=== PATIENT | male | born 1955 | race Caucasian/White ===

== ENCOUNTER 2017-07-08 08:55 | Emergency (ER) | payer SELFPAY ==
[~2017-07-08] VITALS: Ht 182.9 cm; Wt 100.0 kg
[~2017-07-08 08:55] MED LIST: ALEV220T14 PO; AMLO10TA2 PO; ASPI325T PO; BETAM.05%T TOP; CARV3.12 PO; CARV3.125 PO; LISI-363 PO; MELO15TA2 PO; METHO500 PO; MOBI15TA PO
[2017-07-08 08:57] VITALS: BP 175/80; PULSE 75; RESP 16; TEMP 98.7; O2SAT 97
--- NOTE | 2017-07-08 09:09 | PD ---
HPI Chief Complaint: Hypertension Time Seen by Provider: 09:02 Travel History International Travel<30 days: No Contact w/Intl Traveler<30days: No Traveled to known affect area: No History of Present Illness HPI 61-year-old male presents the emergency department for his hypertension. Patient states she's been off his medications for over a year. He is concerned this is blood pressure was read as high "seek medical attention " at [facility] this morning. Patient did have some mild neck attention this morning which she states happens when his blood pressure is elevated. He is to take lisinopril 20 mg as well as amlodipine 10 mg, as well as carvedilol 3.25 mg twice a day. He currently has no primary care physician. He was [facility] previously. He has no known drug allergies. [facility] Past Medical History Diminished Hearing: No Hypertension: Yes Social History Alcohol Use: No Tobacco Use: No Substance Use: No Allergies-Medications (Allergen,Severity, Reaction): Coded Allergies: No Known Allergies (Unverified , 07/08/17) Reported Meds & Prescriptions Reported Meds & Active Scripts Active Amlodipine (Amlodipine Besylate) 10 Mg Tab 10 Mg PO DAILY Coreg (Carvedilol) 3.125 Mg Tab 3.125 Mg PO BID Review of Systems General / Constitutional: No: Fever Eyes: No: Visual changes HENT: No: Headaches Cardiovascular: No: Chest Pain or Discomfort Respiratory: No: Shortness of Breath Gastrointestinal: No: Abdominal Pain Genitourinary: No: Dysuria Musculoskeletal: No: Pain Skin: No Rash Neurologic: No: Weakness Psychiatric: No: Depression Endocrine: No: Polydipsia Hematologic/Lymphatic: No: Easy Bruising Physical Exam Narrative GENERAL: Patient appears no acute distress. SKIN: Warm and dry. HEAD: Atraumatic. Normocephalic. EYES: Pupils equal and round. No scleral icterus. No injection or drainage. ENT: No nasal bleeding or discharge. Mucous membranes pink and moist. NECK: Trachea midline. No JVD. CARDIOVASCULAR: Regular rate and rhythm. RESPIRATORY: No accessory muscle use. Clear to auscultation. Breath sounds equal bilaterally. GASTROINTESTINAL: Abdomen soft, non-tender, nondistended. Hepatic and splenic margins not palpable. MUSCULOSKELETAL: Extremities without clubbing, cyanosis, or edema. No obvious deformities. NEUROLOGICAL: Awake and alert. No obvious cranial nerve deficits. Motor grossly within normal limits. Five out of 5 muscle strength in the arms and legs. Normal speech. PSYCHIATRIC: Appropriate mood and affect; insight and judgment normal. Data Data Last Documented VS Vital Signs Date Time Temp Pulse Resp B/P (MAP) Pulse Ox O2 Delivery O2 Flow Rate FiO2 07/08/17 08:57 98.7 75 16 175/80 (111) 97 MDM Medical Decision Making Medical Screen Exam Complete: Yes Emergency Medical Condition: No Differential Diagnosis Hypertension. Need for medical management. Need for medication refill. Narrative Course Patient is referred to facility at [facility], and appointment is made for 10:20 this morning. A medical screening exam was performed: At the time of evaluation the presenting medical condition was determined not to be of an emergent nature. The patient was given the option of receiving additional care, but declined. Patient was given options for additional community resources from which to obtain care. The Patient Has Been advised to seek medical attention for their presenting complaint. The patient has been advised to return to the ER at any time if an emergent condition develops. Condition: Stable [employer] Jul 08, 2017 09:09
== END 2017-07-08 10:25 | disposition left against medical advice (07) ==
LOC: NEPD 08:55
DX: I10 Essential (primary) hypertension (principal); Z79.899 Other long term (current) drug therapy
CPT/HCPCS: 99281